=== PATIENT | female | born 1960 | race Caucasian/White ===

== ENCOUNTER → 2017-04-16 | Outpatient (CLI) | payer OTHER ==
[~2017-04-16] MED LIST: ALB6.7R INH; ASPI81TA94 PO; ATOR-1 PO; GABA-549 PO; GLUC-198 PO; METO25TA23 PO; MULT1TAB64 PO; TICA90TA PO
--- NOTE | 2017-04-19 09:57 | RADIOLOGY IMAGING REPORT ---
FACILITY: [facility] PATIENT NAME: NOLAN BETH : [id number] MR: [id number] V: [id number] EXAM DATE: ORDERING PHYSICIAN: SUDHEER MURPHY TECHNOLOGIST: Marianne Ham PROCEDURE:BILATERAL DIGITAL SCREENING MAMMOGRAM WITH CAD ASSISTED INTERPRETATION AND 3D BREAST TOMOSYNTHESIS. COMPARISON:Prior mammograms dated 03/17/16, 03/15/14 and 01/23/13. INDICATIONS:SCREENING FINDINGS: A small amount of fibroglandular tissue is seen throughout the breasts. The parenchymal pattern has remained stable when allowing for difference in mammographic technique and patient positioning. There is no evidence of malignant appearing mass, malignant appearing calcification or other secondary sign of malignancy in either breast. DIAGNOSTIC CATEGORY 1--NEGATIVE. RECOMMENDATIONS: ROUTINE MAMMOGRAM AND CLINICAL EVALUATION. IMPRESSION: Bi-RADS 1: No significant abnormality is seen. Images were reviewed with R2CAD and 3D breast tomosynthesis. Dictated by: Amna Callejas M.D. on 04/16/2017 at 12:19 Transcribed by: LEXY on 04/18/2017 at 19:50 Approved by: Amna Callejas M.D. on 04/19/2017 at 9:56 [facility]
== END ==
LOC: MAMO 10:51
PROVIDERS: ATTEND Internal Medicine
DX: Z12.31 Encounter for screening mammogram for malignant neoplasm of breast (principal)
CPT/HCPCS: 77063; 77067

== ENCOUNTER → 2017-12-07 | Outpatient (CLI) | payer OTHER ==
--- NOTE | 2017-12-07 08:23 | EKG ---
FACILITY: [facility] [place] PATIENT NAME: NOLAN BETH : [id number] MR: [id number] V: [id number] EXAM DATE: ORDERING PHYSICIAN: FELIX SAENZ TECHNOLOGIST: ELINA Wills Reason : PREOP-left shoulder Blood Pressure : / mmHG Vent. Rate : 057 BPM Atrial Rate : 057 BPM P-R Int : 178 ms QRS Dur : 092 ms QT Int : 424 ms P-R-T Axes : 044 028 000 degrees QTc Int : 412 ms Sinus bradycardia Nonspecific T wave abnormality Abnormal ECG No previous ECGs available Confirmed by FELIX BARTHOLOMEW ([id number]) on 12/08/2017 6:32:31 AM Referred By: Confirmed By:FELIX BARTHOLOMEW
== END ==
LOC: RESP 08:10
PROVIDERS: ATTEND Anesthesiology
DX: Z01.810 Encounter for preprocedural cardiovascular examination (principal); M75.102 Unspecified rotator cuff tear or rupture of left shoulder, not specified as traumatic; R94.31 Abnormal electrocardiogram [ECG] [EKG]
CPT/HCPCS: 93005

== ENCOUNTER → 2018-04-18 | Outpatient (CLI) | payer OTHER ==
--- NOTE | 2018-04-19 08:36 | RADIOLOGY IMAGING REPORT ---
FACILITY: [facility] PATIENT NAME: NOLAN BETH : [id number] MR: [id number] V: [id number] EXAM DATE: [id number] ORDERING PHYSICIAN: SUDHEER MURPHY TECHNOLOGIST: Marianne Ham PROCEDURE:BILATERAL DIGITAL SCREENING MAMMOGRAM WITH CAD ASSISTED INTERPRETATION & 3D TOMOSYNTHESIS COMPARISON:Prior mammograms 04/16/17, 03/17/16, 03/15/14, 01/23/13. INDICATIONS:SCREENING FINDINGS: Scattered fibroglandular densities are seen throughout the breasts. The parenchymal pattern has remained stable allowing for difference in mammographic technique & patient positioning. DIAGNOSTIC CATEGORY 1--NEGATIVE. RECOMMENDATIONS: ROUTINE MAMMOGRAM AND CLINICAL EVALUATION. IMPRESSION: BIRADS 1: Negative. No significant abnormality is seen. Dictated by: Amna Callejas M.D. on 04/18/2018 at 16:05 Transcribed by: OMER on 04/18/2018 at 16:10 Approved by: Amna Callejas M.D. on 04/19/2018 at 8:35 [facility]
== END ==
LOC: MAMO 04:31
PROVIDERS: ATTEND Internal Medicine
DX: Z12.31 Encounter for screening mammogram for malignant neoplasm of breast (principal)
CPT/HCPCS: 77063; 77067